=== PATIENT | female | born 1945 | race Caucasian/White ===

== ENCOUNTER 2023-10-07 07:36 | Outpatient (CLI) | payer MEDICARE, SELFPAY ==
[2023-10-07] MEDS: REGADENOSON 0.4 MG/5 ML SYRINGE IVP (09:51)
[2023-10-07] MEDS: SODIUM CHLORIDE 0.9 % (FLUSH) 10 ML SYRINGE IVF (09:52)
[2023-10-07 09:53] VITALS: BP 155/69; PULSE 85; RESP 16
--- NOTE | 2023-10-07 10:35 | W.PM.STED ---
Stress Test Note Date Date Seen: 10/07/23 Date of test: 10/07/23 Providers Primary care provider: Akhil Castro Stress test physician: Lucita Lakhani Stress Test Note Stress test ordered: Lexiscan Indication for test: Chest pain Stress test medicine: Lexiscan Results discussion: Resting EKG: Sinus bradycardia, 55 beats per minute. Flipped T-waves V1 and V2 without ST segment change. Resting blood pressure: 171/84 Stress test: Patient had a walking Lexiscan performed after consent granted by patient. Patient did experience lightheadedness, diaphoresis and shortness of breath after the administration of the regadenoson but no chest pain. Symptoms abated by E the end of the test, she felt better. She states she certainly did not experience the chest discomfort that she had been having. She had no hypotension. There was no definitive EKG changes for ischemia, no arrhythmia. Blood pressure at the termination of the test was 180 over 93 and by the end of recovery was 155/69. She will have her post stress nuclear images obtained to send for reading. Await the nuclear medicine images for full diagnostic report. Impression: Subjective symptoms of lightheadedness, diaphoresis and shortness of breath without chest pain, objectively negative EKG portion of this Lexiscan. Follow up suggested: Patient will have her post-stress images done and discharge to home to await the final report.
== END 2023-10-07 09:54 | disposition home or self-care (01) ==
PROVIDERS: PCP Family Medicine; Visit Provider Family Medicine
DX: R07.9 Chest pain, unspecified (principal); R06.09 Other forms of dyspnea
CPT/HCPCS: 78452; 93016; 93017; A9500; J2785

== ENCOUNTER 2024-04-24 11:25 | Outpatient (CLI) | payer MEDICARE, SELFPAY | END 2024-04-24 11:26 | disposition home or self-care (01) | LOC: NFLDREF 11:26 | PROVIDERS: PCP Family Medicine; Visit Provider Family Medicine | DX: Z13.228 Encounter for screening for other metabolic disorders (principal) | CPT/HCPCS: 80053 ==

== ENCOUNTER 2024-05-17 09:16 | Day surgery (SDC) | payer MEDICARE, SELFPAY ==
[2024-05-17] VITALS (22 sets, daily range): BP systolic 94–154; BP diastolic 55–95; PULSE 46–83; RESP 16–20; TEMP 35.8–36.8; O2SAT 9–99
[2024-05-17] MEDS: LACTATED RINGERS 1000 ML 1,000 ML 100 ML IV ×2 (10:00→13:00)
[2024-05-17] MEDS: SODIUM CHLORIDE 0.9 % (FLUSH) 10 ML SYRINGE IVF (10:00)
--- NOTE | 2024-05-17 10:02 | W.PM.H&PU ---
History & Physical Update History & Physical Update H&P Reviewed and patient assessed: No changes noted
[2024-05-17] MEDS: MIDAZOLAM HCL 1 MG/ML inj IVP (10:33)
[2024-05-17] MEDS: fentaNYL 100 MCG/2 ML inj IVP (10:33)
--- NOTE | 2024-05-17 10:45 | SUR.PREOP ---
TIME?OUT:?1030 PT/RN/MDA?VERIFICATION?OF?SURGICAL?SITE,?PROCEDURE,?AND?CONSENT OBTAINED?PRIOR?TO?INVASIVE?PROCEDURE.
--- NOTE | 2024-05-17 10:46 | SUR.PREOP ---
Patient has allergy to iodine contrast, no iodine nasal swab prep done pre-op. Patient refused oral meds.
[2024-05-17] MEDS: CEFAZOLIN 2 GM in 0.9 % SODIUM CHLORIDE Mini-bag 100 ML IVPB ×2 (10:48→17:52)
[2024-05-17] MEDS: TRANEXAMIC ACID 100 MG/ML INJ 1000 MG IV (10:49)
--- NOTE | 2024-05-17 10:55 | CRLHL7_ITS ---
For Patients: As a result of the Cures Act, medical imaging exams and procedure reports are released immediately into your electronic medical record. You may view this report before your referring provider. If you have questions, please contact your health care provider. INDICATION: Postop COMPARISON: 03/27/2024 TECHNIQUE: Two view left knee. FINDINGS: Left knee arthroplasty. Components in good position. No fracture. Expected postoperative appearance of the soft tissues. IMPRESSION: Postoperative radiograph of the left knee arthroplasty. No complication seen. Dictated by Karolina Meadows MD @ 05/17/2024 1:12:45 PM (Electronically Signed)
--- NOTE | 2024-05-17 11:58 | P.NB_ITS ---
Nerve Block Nerve Block Time Seen by Provider: 10:33 Date Seen: 05/17/24 Type of block requested by surgeon for post-operative analgesia: adductor canal Side: left Time out performed: Yes Verification of patient name: Yes Verification of date of : Yes Site marking: site marked Name of person performing procedure: Suman Continuous monitoring Was continuous monitoring of O2 sat, B/P, monitoring and evaluation advisor, recorded every 15 minutes?: Yes Procedure Checklist: sterile prep, needles and gloves Ultrasound guided. Images saved: Yes Medications given in 5ml increments after negative aspiration: Marcaine %: 0.25 mL: 15 Needle gauge: 20 Precedex (mcg): 25 Patient tolerated procedure well: Yes Block Charges Block Charge (with Pro Fee): Femoral Nerve Use of Ultrasound Machine for Block: Yes- US Guidance/pain block
--- NOTE | 2024-05-17 11:59 | P.ANES_ITS ---
Anesthesia Charges Start Date/Time Anesthesia Start Date: 05/17/24 Anesthesia Start Time: 10:37 Stop Date/Time Anesthesia Stop Date: 05/17/24 Anesthesia Stop Time: 12:58 Summary Extremes of Age - Over 70 or under 1: MDA Coding CPT Codes CPT Codes: ANESTH KNEE ARTHROPLASTY - 47763 ([id number]) P3 - PATIENT W/SEVERE SYS DISEASE, QK - UPPER INSPECTOR 2-4 CNCRNT ANES PROC, QX - SPEECH LANGUAGE PATHOLOGIST TRAVEL SVC W/ MD MED DIRECTION Additional Codes: Summary - Extremes of Age - Over 70 or under 1: MDA ([id number])
--- NOTE | 2024-05-17 11:59 | P.NB_ITS ---
Nerve Block Nerve Block Time Seen by Provider: 10:33 Date Seen: 06/07/24 Type of block requested by surgeon for post-operative analgesia: geniculars Side: left Time out performed: Yes Verification of patient name: Yes Verification of date of : Yes Site marking: site marked Name of person performing procedure: Suman Continuous monitoring Was continuous monitoring of O2 sat, B/P, lunchroom monitor, recorded every 15 minutes?: Yes Procedure Checklist: sterile prep, needles and gloves Ultrasound guided. Images saved: Yes Medications given in 5ml increments after negative aspiration: Marcaine %: 0.25 mL: 9 Needle gauge: 25 Patient tolerated procedure well: Yes Block Charges Block Charge (with Pro Fee): Genicular Nerve Block
--- NOTE | 2024-05-17 11:59 | W.ANESCHARGE ---
Anesthesia Charges Start Date/Time Anesthesia Start Date: 05/17/24 Anesthesia Start Time: 10:37 Stop Date/Time Anesthesia Stop Date: 05/17/24 Anesthesia Stop Time: 12:58 Summary Extremes of Age - Over 70 or under 1: MDA Coding CPT Codes CPT Codes: ANESTH KNEE ARTHROPLASTY - 91933 ([id number]) P3 - PATIENT W/SEVERE SYS DISEASE, QK - MEASUREMENT SPECIALIST 2-4 CNCRNT ANES PROC, QX - PIANO SOUNDING BOARD MATCHER SVC W/ MD MED DIRECTION Additional Codes: Summary - Extremes of Age - Over 70 or under 1: MDA ([id number])
--- NOTE | 2024-05-17 12:08 | P.ORPRC_ITS ---
Procedure Note Date of procedure: 05/17/24 Procedure: PREOPERATIVE DIAGNOSIS: 1. Left knee osteoarthritis, primary, severe POSTOPERATIVE DIAGNOSIS: 1. Left knee osteoarthritis, primary, severe PROCEDURE: 1. Left total knee arthroplasty - subvastus SURGEON: Jose Juan Quinn MD. ANIMAL HUSBANDRY MANAGER: Randy Johnson PA-C - Of note, a skilled prosthetic assistant was critical for this case to aid in patient positioning, tissue retraction, limb manipulation/positioning, and closure. ANESTHESIA: Spinal anesthetic EBL: 50ml IMPLANTS: DePuy J&J all cemented TKA - Attune PS femur size 5 narrow Size 4 tibia 6 mm poly spacer 38 mm patella TOURNIQUET: 90 min at 250 torr COMPLICATIONS: None evident INDICATIONS: The patient is a pleasant 78-year-old female who has experienced severe left knee pain and difficulty bearing weight. Workup included x-rays which revealed severe osteoarthrosis in the knee. Given the deformity, the dysfunction, and the pain, as well as the failure of nonoperative management, recommendation was made for surgery. FINDINGS: Full-thickness chondral loss diffusely throughout the lateral and patellofemoral compartments. To a lesser degree medial compartment. Degenerative meniscus pathology lateral greater than medial. Large effusion upon entering the joint. DESCRIPTION OF PROCEDURE: Following a thorough discussion of risks, benefits, and alternatives consent was obtained and the left knee was marked. The patient was brought to the operating room and placed supine on the operating table. Induction of anesthesia was undertaken. 1 g IV Ancef and 1 g tranexamic acid was administered within 1 hr of incision preoperatively. Proper time-out was performed identifying proper patient, site, procedure. The operative extremity was prepped and draped in the appropriate sterile fashion using ChloraPrep after the patient was positioned supine with all bony prominences well padded. A longitudinal, anterior, midline skin incision was made starting approximately 3cm proximal to the superior pole of the patella and advanced distal to the tibial tubercle. A subvastus approach was utilized. A medial subperiosteal sleeve was created with knife, robert elevator and curved osteotome. The retropatellar fatpad was resected and the synovium in the suprapatellar pouch excised to visualize the anterior femoral cortex. Femoral preparation was performed via an intramedullary guide. Step drill allow ed access into the femoral canal. The distal cutting guide was placed with 6 ? of valgus and 11 mm cut on the distal femur. Femur was sized using a anterior referencing guide in 5 ? of external rotation. This was also confirmed by utilizing trans epicondylar axis and Whitesides line for reference. This found have a best fit with the sizing noted above. The 4 in 1 cutting block was then placed, and the distal femur shaped accordingly. The box cut was then created and the trial implant inserted to confirm appropriate fit. We turned our attention to the proximal tibia. Extramedullary guide was utilized for cutting with the goal of being 90 degree cut from the mechanical axis of the tibia in the varus/valgus plane utilizing tibial crest as the primary alignment. Initially a 3 mm resection was performed from the medial tibial plateau. Ultimately, balancing was achieved in both flexion and extension in both varus and valgus. The knee was able to achieve full extension as well comfortably. The patella was initially measured and found have a thickness of 19 mm. It was resected back to approximately 14 mm. It was sized to be a best fit with as noted above. This was drilled, trial placed. All trials were placed and found to have an excellent stability and balance. At this stage, trial implants were removed, the knee was thoroughly irrigated with normal saline, and the cement was mixed. After irrigation, the knee was thoroughly dried, and cement placed, with the real tibial and femoral implants placed along with the patella. Trial poly spacer was placed and confirmed to have excellent range of motion and full extension, and the real poly spacer opened and inserted. All extra cement was removed, and a 3 min Betadine soak performed. Finally, a final irrigation round with normal saline was performed. Closure performed with 0 PDS and #0 Stratafix for the quad tendon/retinaculum. 2-0 Vicryl/Stratafix for the subcutaneous and 4-0 Monocryl for subcuticular closure. Dressings were applied and the patient was awoken from anesthesia after the tourniquet deflated and transferred the PACU in stable condition. A skilled prosthetic assistant was critical for this case to aid in patient positioning, tissue retraction, bone exposure, limb manipulation/positioning, patient safety, and closure. PLAN: 1. Weight bear as tolerated operative extremity. 2. 23 hr perioperative antibiotics. 3. Ice. 4. PT/OT consults for ambulation assistance/mobility education. 5. Social work consult for discharge planning. 6. DVT prophylaxis with at SCDs and aspirin twice daily.
--- NOTE | 2024-05-17 12:59 | P.ANES_ITS ---
Anesthesia Charges Start Date/Time Anesthesia Start Date: 05/17/24 Anesthesia Start Time: 10:37 Stop Date/Time Anesthesia Stop Date: 05/17/24 Anesthesia Stop Time: 12:58 Summary Extremes of Age - Over 70 or under 1: LABOR RELATIONS SPECIALIST Coding CPT Codes CPT Codes: ANESTH KNEE ARTHROPLASTY - 79017 ([id number]) P3 - PATIENT W/SEVERE SYS DISEASE, QK - MANUFACTURING QUALITY TECHNICIAN 2-4 CNCRNT ANES PROC, QX - LABOR RELATIONS SPECIALIST SVC W/ MD MED DIRECTION Additional Codes: Summary - Extremes of Age - Over 70 or under 1: LABOR RELATIONS SPECIALIST ([id number])
--- NOTE | 2024-05-17 12:59 | W.ANESCHARGE ---
Anesthesia Charges Start Date/Time Anesthesia Start Date: 05/17/24 Anesthesia Start Time: 10:37 Stop Date/Time Anesthesia Stop Date: 05/17/24 Anesthesia Stop Time: 12:58 Summary Extremes of Age - Over 70 or under 1: BRICKLAYER SUPERVISOR Coding CPT Codes CPT Codes: ANESTH KNEE ARTHROPLASTY - 03050 ([id number]) P3 - PATIENT W/SEVERE SYS DISEASE, QK - PROFESSOR OF THEATER 2-4 CNCRNT ANES PROC, QX - BRICKLAYER SUPERVISOR SVC W/ MD MED DIRECTION Additional Codes: Summary - Extremes of Age - Over 70 or under 1: BRICKLAYER SUPERVISOR ([id number])
[2024-05-17] MEDS: OXYCODONE 1 MG/ML ORAL SOLN 5 MG PO ×2 (14:33→18:13)
--- NOTE | 2024-05-17 17:25 | PC.NURSE ---
End of shift. Pt has been very pleasant but also very anxious and she want to do things her way. she is alert x4. pain in the left knee 3-5/ she got liquid pain meds. she does not do well with po meds. IV is patent. alarms are on and she is a fall risk. Rn recommenced to not get up to [facility], but pt said she could not pee any other way. she stood fine and turned with no problems. and he knees buckled and she was lowered to the ground. md was update and family was in the room. active fabby is on. Álvaro becker is also on. plexi are on. pt is eating, drinking and voiding with no problems. she does have trouble swallowing at time.
--- NOTE | 2024-05-17 17:53 | P.IMCN_ITS ---
Date of Consult Patient: [facility] Patient Consult date: 05/17/24 Requesting Physician: Orthopedics Primary Care Provider: Akhil Castro MD Consult Narrative Reason for consult: Medical management Narrative: Soha Ferrer is a 78 year old female past medical history significant for osteoarthritis, COPD, osteoporosis, history of DVT is POD#0 s/p left total knee arthroplasty, Dr. Quinn. There have been no perioperative complications or nursing concerns reported. Estimated total blood loss documented as 50 ml. Updated and reviewed the active medical problems, past medical history, past surgical history, social history, allergies and medications in our electronic EMR. Postoperatively, patient reports pain fairly well managed. Improved with oxycodone and Tylenol. Tolerating orals without nausea vomiting. Tells me she has a history of swallowing difficulties, possibly esophageal stricture though I did not see this in her EMR. Managed with slowed eating, taking breaks. Reported by nurses earlier this afternoon that she was determined to ambulate and proceeded to take steps despite staff cautioning her not to while holding onto her. She did slip to the ground while the nurse was holding her. No injury reported. Review of Systems Narrative: REVIEW OF SYSTEMS: Complete review of systems performed and negative unless otherwise stated in HPI or below. [facility] Medical History (Updated 05/17/24 @ 20:44 by Essence Flores PA-C) Swallowing difficulty ?R13.10 - Dysphagia, unspecified (ICD-10) Ankle fracture ?S82.899A - Other fracture of unspecified lower leg, initial encounter for closed fracture (ICD-10) Wrist fracture ?S62.109A - Fracture of unspecified carpal bone, unspecified wrist, initial encounter for closed fracture (ICD-10) History of herpes zoster (2019) ?Z86.19 - Personal history of other infectious and parasitic diseases (ICD- 10) Pulmonary embolism (2019) ?I26.99 - Other pulmonary embolism without acute cor pulmonale (ICD-10) Surgical History History of esophageal dilatation (~1979) ?Z98.890 - Other specified postprocedural states (ICD-10) History of tonsillectomy and adenoidectomy ?Z90.89 - Acquired absence of other organs (ICD-10) History of cataract surgery (01/2019) ?Z98.49 - Cataract extraction status, unspecified eye (ICD-10) Family History Mother Heart disease Myocardial infarction, Onset Age: 70 Osteoporosis Father Heart disease Sister Stroke, Onset Age: 52 Myocardial infarction, Onset Age: 61 Osteoporosis Brother Heart disease Hx of CABG, Onset Age: 50 Sister Heart disease, Onset Age: 62 Osteoporosis Lung cancer Brother Heart disease, Onset Age: 60 Maternal Grandmother Stroke, Onset Age: 52 Brother Pancreatic cancer, Onset Age: 72 Sister Stroke, Onset Age: 72 Osteoporosis Brother Congenital heart anomaly Aunt Pancreatic cancer Other Alzheimers disease Thyroid disease Social History What is your current living situation?: I presently have a place to live Problems where you live: no known problems In the past 12 months, utilities in danger of being shut off: no In past 12 months, lack of transportation kept you from medical appts, meetings, work, or getting things needed for daily living: no In the past 12 mos, have been you worried that your food would run out before you had money to buy more?: never true In the past 12 mos, the food you bought just didn't last and you didn't have money to buy more?: never true Highest level of school completed/degree received: some college, no degree Smoking Status: Never smoker Do you use any of these nicotine containing products: None Second hand tobacco smoke exposure: No How often do you have a drink containing alcohol: 4 or more times a week Alcohol type: hard liquor How many standard drinks containing alcohol do you have on a typical day: 1 or 2 How often do you have six or more drinks on one occasion: Never AUDIT-C Alcohol total score: 4 Non-prescribed substance use: denies use Caffeine: Yes How often does anyone, including family, friends and others, physically hurt you : never How often does anyone, including family, friends and others, insult or talk down to you: never How often does anyone, including family, friends and others, threaten you with harm: never How often does anyone, including family, friends and others, scream or curse at you: never service: No Meds Home Medications and Allergies Allergies Allergy/AdvReac Type Severity Reaction Status Date / Time alendronate sodium (From Allergy Severe Swelling Verified 05/17/24 10:48 Fosamax) of Lip/Tongue/Throat hydrocortisone (From Allergy Severe Unknown Verified 05/17/24 10:48 Terra-Cortril) Iodinated Contrast Media Allergy Severe Anaphylaxis Verified 05/17/24 10:48 oxytetracycline (From Allergy Severe Unknown Verified 05/17/24 10:48 Terra-Cortril) Sulfa (Sulfonamide Allergy Intermediate Hives Verified 05/17/24 10:48 Antibiotics) hydromorphone (From Dilaudid) AdvReac Mild Nausea Verified 05/17/24 10:48 Exam Narrative: Exam Narrative: PHYSICAL EXAM General: Pleasant, conversant, NAD HEENT: Normocephalic, atraumatic, sclera white, EOMI, oral mucosa moist Cardiovascular: RRR, S1S2. No pitting edema Pulmonary: CTA bilaterally without rhonchi, rales, expiratory wheezes. No dyspnea Neurological: Alert, answering questions appropriately, cranial nerves intact, no focal findings Extremities: No gross joint deformity or swelling. Postoperative dressing in place, dry. Neurovascularly intact Skin: Warm, dry. Const: Vital Signs, click to edit/add: Vital Signs - 24 hr 05/17/24 09:53 05/17/24 10:33 05/17/24 12:55 Temperature 98.3 F 97 F L Pulse Rate 54 L 57 L 67 Respiratory Rate 16 16 16 Blood Pressure 147/80 H 154/71 H 95/55 L Pulse Oximetry 97 96 90 Oxygen Delivery Me thod Room Air Room Air Room Air Oxygen Flow Rate 05/17/24 13:00 05/17/24 13:05 05/17/24 13:10 Temperature Pulse Rate 53 L 57 L 61 Respiratory Rate 16 16 16 Blood Pressure 117/61 124/65 136/72 Pulse Oximetry 93 97 95 Oxygen Delivery Me thod Nasal Cannula Nasal Cannula Nasal Cannula Oxygen Flow Rate 2 2 2 05/17/24 13:15 05/17/24 13:20 05/17/24 13:25 Temperature 97.8 F Pulse Rate 60 53 L 60 Respiratory Rate 16 16 16 Blood Pressure 143/71 H 137/70 126/75 Pulse Oximetry 98 98 98 Oxygen Delivery Me thod Nasal Cannula Nasal Cannula Nasal Cannula Oxygen Flow Rate 2 2 2 05/17/24 14:00 05/17/24 14:00 05/17/24 14:15 Temperature 96.5 F L 96.5 F L Pulse Rate 46 L 46 L 49 L Respiratory Rate 20 20 16 Blood Pressure 152/88 H 152/88 H 138/67 Pulse Oximetry 94 95 98 Oxygen Delivery Me thod Room Air Room Air Room Air Oxygen Flow Rate 05/17/24 14:30 05/17/24 14:45 05/17/24 15:00 Temperature Pulse Rate 69 60 Respiratory Rate 16 16 16 Blood Pressure 121/57 L 94/80 116/68 Pulse Oximetry 94 9 L 96 Oxygen Delivery Me thod Room Air Room Air Room Air Oxygen Flow Rate 05/17/24 15:15 05/17/24 15:30 05/17/24 15:35 Temperature 96.7 F L Pulse Rate 61 61 Respiratory Rate 16 16 Blood Pressure 128/74 148/65 H Pulse Oximetry 99 98 99 Oxygen Delivery Me thod Room Air Room Air Oxygen Flow Rate 05/17/24 15:41 05/17/24 16:30 Temperature 96.9 F L Pulse Rate 65 Respiratory Rate 16 Blood Pressure 121/92 H Pulse Oximetry 99 98 Oxygen Delivery Me thod Room Air Room Air Oxygen Flow Rate Assessment and Plan Assessment and plan (1) Osteoarthritis of left knee: Problem comment: -POD#0 s/p L TKA, Dr. Quinn -perioperative management including pain management and anticoagulation per Orthopedic surgery -encourage postoperative pulmonary hygiene -PT OT consults -plan to discharge home with daughter and son-in-law tomorrow Status: Acute (2) COPD (chronic obstructive pulmonary disease): Problem comment: -stable, encourage pulmonary hygiene postoperatively, incentive spirometry Status: Acute (3) Swallowing difficulty: Problem comment: -chronic, possibly an esophageal stricture? I do not see records in her recent EMR. Knows how to self manage Status: Acute Total Time Spent Total Time Spent: Today I spent 60 minutes seeing the patient, discussing the patient with ER staff, reviewing Expanse and Epic notes/diagnostics, discussing the care plan with our team that includes social work, PT/OT, pharmacy, RT, detention and documenting my impressions and plan in the medical record.
[2024-05-17] MEDS: ACETAMINOPHEN SUSPENSION 1 BOTTLE 1000 MG PO (19:13)
[2024-05-17] MEDS: SENNOSIDES 1 TAB TABLET 2 TAB PO (20:37)
[2024-05-17] MEDS: ASPIRIN 81 MG TAB.CHEW PO (20:37)
[2024-05-17] MEDS: BENZOCAINE/MENTHOL 1 EACH LOZENGE MUCOUS MEM (20:38)
[2024-05-17] MEDS: OXYCODONE 1 MG/ML ORAL SOLN PO (21:25)
[2024-05-18] MEDS: CEFAZOLIN 2 GM in 0.9 % SODIUM CHLORIDE Mini-bag 100 ML IVPB ×2 (01:44→09:58)
[2024-05-18 03:00] VITALS: BP 128/55; PULSE 58; RESP 18; TEMP 36.6; O2SAT 98
[2024-05-18] MEDS: OXYCODONE 1 MG/ML ORAL SOLN PO ×2 (05:17→11:23)
--- NOTE | 2024-05-18 05:34 | PC.NURSE ---
Addendum entered and electronically signed by Ayse Mcclain RN 05/18/24 06:49: At 2024 patient's daughter expressed concern that her mother was slurring her words. Waist Presser performed neuro exam, patient's pupils equal and reactive, smile even, upper and lower extremities equal in strength. Waist Presser updated Essence Jeter PA-C, instructed telegraphic typewriter mechanic to watch symptoms but patient had anesthesia and narcotic medications which could be causing slurring of words. Neuro's checked periodically throughout the night and no change from baseline. Daughter's bedside and updated with MD recommendation and in agreement with plan of care. Original Note: End of shift report [id number]: Pleasant and cooperative with cares. Pain to left knee well managed with current regimen. Dressing to left knee is clean, dry and intact. CMS to LLE intact, patient tolerating transfers and short distances of walking with walker and gait belt. Ice pack to left knee, patient tolerated well. Denies any nausea or vomiting, tolerating foods and fluids. Continent of bladder throughout the night.
[2024-05-18 06:51] LABS: Basophils Absolute Auto 0.01 K/uL (0.00-0.30); Basophils Percent Auto 0.1 % (0.0-3.0); Eosinophils Absolute Auto 0.01 K/uL (0.00-0.50); Eosinophils Percent Auto 0.1 % (0.0-7.0); Hematocrit 31.4 % (33.0-51.0); Hemoglobin* 10.3 gm/dL (12.0-16.0); Immature Granulocytes Abs Auto 0.01 K/uL (0.00-0.30); Immature Granulocytes Pct Auto 0.1 %; Lymphocytes Percent Auto 13.9 % (20-44); Mean Corpuscular HGB Conc 33 gm/dL (32-36); Mean Corpuscular Hemoglobin 30 pg (26-34); Mean Corpuscular Volume 92 fL (80-100); Monocytes Percent Auto 10.7 % (0.0-11.0); Neutrophils Percent Auto 75.1 % (42.0-72.0); Platelet Count* 251 K/uL (140-440); RDW Coefficient of Variation % 13.1 % (11.5-15.5); Red Blood Count 3.41 m/uL (4.00-5.20); White Blood Count* 10.28 K/uL (4.50-11.00)
[2024-05-18 06:57] LABS: Sodium* 133 mmol/L (135-149)
[2024-05-18 07:00] LABS: Blood Urea Nitrogen* 12 mg/dL (7-30); Est. Creatinine Clearance* 36.08; Estimated Glomerular Filt Rate 57 ml/min; Slide Review Reflex No
[2024-05-18 07:30] VITALS: BP 120/73; PULSE 64; RESP 16; TEMP 36; O2SAT 97
[2024-05-18] MEDS: SENNOSIDES 1 TAB TABLET 2 TAB PO (08:51)
[2024-05-18] MEDS: ASPIRIN 81 MG TAB.CHEW PO (08:51)
[2024-05-18] MEDS: ONDANSETRON 2 MG/ML inj 4 MG IVP ×2 (10:12→14:39)
--- NOTE | 2024-05-18 10:36 | PC.SOCIAL ---
Social Work Consult: SW met with patient and daughter to determine if there are any needs or concerns with discharge. Daughter states that she has no concerns about discharge and that she and her sister, who patient will be staying with, feel ready. Patient expresses that it's been a bit challenging as she hasn't been able to sleep, but feels when she does get some sleep she will feel better. Patient spoke with daughter about how she wants the sleeve on her leg and ice, daughter was reassuring and supportive of patient. Please contact SW if needs arise.
[2024-05-18 11:00] VITALS: BP 150/66; PULSE 57; RESP 20; TEMP 35.9; O2SAT 95
--- NOTE | 2024-05-18 11:06 | CRLHL7_ITS ---
For Patients: As a result of the Century Cures Act, medical imaging exams and procedure reports are released immediately into your electronic medical record. You may view this report before your referring provider. If you have questions, please contact your health care provider. INDICATION: Notable left common posterior thigh pain, postop LTKA TECHNIQUE: Ultrasound venous duplex lower left extremity. Compression venous exam was performed using marie-scale, color Doppler, and spectral Doppler analysis. COMPARISON: None. FINDINGS: Limited exam, secondary to recent surgery. Deep veins: Sonographic imaging demonstrates the left common femoral, deep femoral, superficial femoral, popliteal, posterior tibial and the contralateral right common femoral veins to be fully compressible with normal color Doppler blood flow. Superficial veins: Greater saphenous vein is fully compressible. IMPRESSION: Normal left lower extremity venous ultrasound, no sign of deep venous thrombosis. Dictated by Max Pate MD @ 05/18/2024 12:37:00 PM (Electronically Signed)
--- NOTE | 2024-05-18 11:11 | PM.ORPN ---
Subjective Subjective Date Seen: 05/18/24 Principal diagnosis: Status postop day 1 left total knee arthroplasty Interval history: Patient reports not feeling well. Nausea and vomiting. Recently took Zofran for nausea which still has not helped. Notes notable left calf and posterior thigh pain. Posterior knee pain. No acute events over night. Pain managed with scheduled and PRN medications, ice. She is unable to swallow pills. DVT prophylaxis: 81 mg aspirin by mouth twice daily, SCDs, walking. Denies fevers, chills, aches, N/V, CP, SOB/RAYMOND, or lightheadedness. Years ago, provoked right lower extremity blood clot due to being in bed for numerous weeks from shingles. Daughter in room with the patient. Ortho Exam Narrative Exam Narrative: -Patient appears comfortable; no apparent acute distress. -Alert and oriented times 3 -Operative knee moderately swollen; soft tissues supple; ecchymosis just medial and proximal to the bandage; no erythematous streaking Warmth appropriate -Surgical dressing clean, dry, intact; no drainage -Bilateral calfs soft; no significant swelling or edema, erythema, discoloration, warmth, or palpable cords. Notably tender to palpation left calf, especially medial and proximal posterior thigh -2+ DP/PT pulses, intact dermatomes and myotomes distally (5/5 strength) Const Vital Signs, click to edit/add: Vital Signs - 24 hr 05/17/24 12:55 05/17/24 13:00 05/17/24 13:05 Temperature 97 F L Pulse Rate 67 53 L 57 L Pulse Rate [Left Pulse Oximeter] Respiratory Rate 16 16 16 Blood Pressure 95/55 L 117/61 124/65 Blood Pressure [Right Arm] Pulse Oximetry 90 93 97 Oxygen Delivery Method Room Air Nasal Cannula Nasal Cannula Oxygen Flow Rate 2 2 05/17/24 13:10 05/17/24 13:15 05/17/24 13:20 Temperature Pulse Rate 61 60 53 L Pulse Rate [Left Pulse Oximeter] Respiratory Rate 16 16 16 Blood Pressure 136/72 143/71 H 137/70 Blood Pressure [Right Arm] Pulse Oximetry 95 98 98 Oxygen Delivery Method Nasal Cannula Nasal Cannula Nasal Cannula Oxygen Flow Rate 2 2 2 05/17/24 13:25 05/17/24 14:00 05/17/24 14:00 Temperature 97.8 F 96.5 F L 96.5 F L Pulse Rate 60 46 L 46 L Pulse Rate [Left Pulse Oximeter] Respiratory Rate 16 20 20 Blood Pressure 126/75 152/88 H 152/88 H Blood Pressure [Right Arm] Pulse Oximetry 98 94 95 Oxygen Delivery Method Nasal Cannula Room Air Room Air Oxygen Flow Rate 2 05/17/24 14:15 05/17/24 14:30 05/17/24 14:45 Temperature Pulse Rate 49 L 69 Pulse Rate [Left Pulse Oximeter] Respiratory Rate 16 16 16 Blood Pressure 138/67 121/57 L 94/80 Blood Pressure [Right Arm] Pulse Oximetry 98 94 9 L Oxygen Delivery Method Room Air Room Air Room Air Oxygen Flow Rate 05/17/24 15:00 05/17/24 15:15 05/17/24 15:30 Temperature 96.7 F L Pulse Rate 60 61 61 Pulse Rate [Left Pulse Oximeter] Respiratory Rate 16 16 16 Blood Pressure 116/68 128/74 148/65 H Blood Pressure [Right Arm] Pulse Oximetry 96 99 98 Oxygen Delivery Method Room Air Room Air Room Air Oxygen Flow Rate 05/17/24 15:35 05/17/24 15:41 05/17/24 16:30 Temperature 96.9 F L Pulse Rate 65 Pulse Rate [Left Pulse Oximeter] Respiratory Rate 16 Blood Pressure 121/92 H Blood Pressure [Right Arm] Pulse Oximetry 99 99 98 Oxygen Delivery Method Room Air Room Air Oxygen Flow Rate 05/17/24 19:00 05/17/24 20:00 05/17/24 23:00 Temperature 97.2 F L 97.4 F L Pulse Rate 82 83 Pulse Rate [Left Pulse Oximeter] Respiratory Rate 18 16 Blood Pressure 123/95 H 121/74 Blood Pressure [Right Arm] Pulse Oximetry 94 97 94 Oxygen Delivery Method Room Air Room Air Oxygen Flow Rate 05/17/24 23:00 05/17/24 23:00 05/17/24 23:00 Temperature 96.7 F L Pulse Rate Pulse Rate [Left Pulse Oximeter] 60 Respiratory Rate 16 16 16 Blood Pressure Blood Pressure [Right Arm] 112/56 L Pulse Oximetry 94 94 Oxygen Delivery Method Room Air Room Air Oxygen Flow Rate 05/18/24 03:00 05/18/24 07:30 05/18/24 07:30 Temperature 97.9 F 96.8 F L Pulse Rate Pulse Rate [Left Pulse Oximeter] 58 L 64 Respiratory Rate 18 16 Blood Pressure Blood Pressure [Right Arm] 128/55 L 120/73 Pulse Oximetry 98 97 97 Oxygen Delivery Method Room Air Room Air Oxygen Flow Rate 05/18/24 07:30 05/18/24 07:30 Temperature Pulse Rate Pulse Rate [Left Pulse Oximeter] 64 Respiratory Rate 16 16 Blood Pressure Blood Pressure [Right Arm] Pulse Oximetry 97 Oxygen Delivery Method Room Air Oxygen Flow Rate Assessment and Plan Assessment and plan (1) Osteoarthritis of left knee: Problem details: -POD#1 s/p L TKA, Dr. Quinn -perioperative management including pain management and anticoagulation per Orthopedic surgery -encourage postoperative pulmonary hygiene -PT OT consults -plan to discharge home with daughter and son-in-law tomorrow Status: Acute (2) COPD (chronic obstructive pulmonary disease): Problem details: -stable, encourage pulmonary hygiene postoperatively, incentive spirometry Status: Acute (3) Swallowing difficulty: Problem details: -chronic, possibly an esophageal stricture? I do not see records in her recent EMR. Knows how to self manage Status: Acute (4) Postoperative nausea and vomiting: Problem details: Treated with Zofran recently, waiting for medication to help symptoms. Status: Acute Plan - Complete 23 hour perioperative antibiotics. - PT/OT consult for education and assistance. - Social work consult for discharge planning - Prescribed analgesics as needed - liquid and capsule medication granules on applesauce - DVT prophylaxis: 81 mg aspirin by mouth twice daily, walking, and SCDs - With her notable left calf and posterior thigh pain, will order venous duplex ultrasound to rule DVT before she leaves for discharge. - Continue to eat food with medications; small sips of water. Will discharge with Zofran to help with nausea. - Anticipation is for discharge to home with joann today, 05/18/2024 if the patient remains medically stable, pain is controlled, and they are safe with mobilization.
--- NOTE | 2024-05-18 14:14 | PC.NURSE ---
End of shift: Patient has complained of nausea and dizziness, aromatherapy applied and zofran given with some relief. Small amount of clear emesis noted x2. Pt states pain is in the back of her knee rated anywhere from 2-8, ice applied and pain meds offered and given. Patient dressing on the left knee is C/D/I. Left knee is swollen with 1+ edema noted. Pt is SL and continent of urine. Ambulates 1 assist with GB/W. Alarms are on.
--- NOTE | 2024-05-18 15:31 | PC.NURSE ---
went over discharge packet with pt and daughter, went over medications. appointments, education and instructions/ pt belonging sheet done. pt left with all belongings and paper work SL was d/c intact and patent. 2 active ice shent with pt. she got a w/e ride to [employer] and was helped in to van
== END 2024-05-18 15:15 | disposition home or self-care (01) ==
LOC: OR 09:17 → MEDSURG 09:18
PROVIDERS: PCP Family Medicine; Visit Provider Orthopaedic Surgery Sports Medicine
PROC: (CPT 27447; principal; 2024-05-17 11:00)
DX: M17.12 Unilateral primary osteoarthritis, left knee (principal); G89.18 Other acute postprocedural pain; R13.19 Other dysphagia; R11.2 Nausea with vomiting, unspecified; J44.9 Chronic obstructive pulmonary disease, unspecified; Z86.718 Personal history of other venous thrombosis and embolism; Z79.01 Long term (current) use of anticoagulants
CPT/HCPCS: 27447; 01402; 36415; 64447; 64454; 73560; 76942; 82565; 84132; 84295; 84520; 85025; 93971; 97110; 97116; 97161; 97165; 97530; 97535; 99100; A9270; C1776; J0665; J0690; J1100; J2250; J2405; J2704; J3010; J7120

== ENCOUNTER 2024-06-26 08:30 | Outpatient (RCR) | payer MEDICARE, SELFPAY ==
--- NOTE | 2024-05-09 15:32 | PT.OPE ---
PT [facility] PT [facility] Eval Start: 05/09/24 14:06 Freq: Status: Active Protocol: Document 05/09/24 14:06 ADELINALesley (Rec: 05/09/24 14:07 ADELINALesley [id number]) E-signed By Priyank Kyle DPT, MS Physical Therapy Outpatient Evaluation Insurance Information Recert Due Date 08/07/24 Insurance Name Medicare B,[employer] Medical Diagnosis Pre-op left total knee arthroplasty Treating Diagnosis L knee pain, decreased L knee ROM, decreased L LE flexibility and strength, and gait dysfunction Subjective Preferred Name Samira Dunaway Pt is a 78 y.o. female who presents to PT prior to L TKA tomorrow on 05/10/24 at [facility]. Has struggled with chronic L knee pain and weakness over the past year with amb limited due to her knee frequently buckling while waking. Pt describes previous radiographic evidence of L knee cartilage loss. Lives alone in a single-story home with 13 stairs to reach her laundry and living room in the basement. Pt will stay with her daughter in [place] following surgery and attend PT tx at our [place] clinic . Her daughter?s house has 2 steps to enter with a railing with her bedroom and bathroom on the main level. Began performing a pre-op TKA HEP her friend gave her 2 weeks ago with all exercises going well. Owns a FWW and a SPC. PMH includes L knee OA and asthma. AGGR factors: walking, stair climbing, standing, uneven surfaces, carrying objects. ALLEV factors: ice, Advil, rest. 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 Pain Comments 0-6/10 Current Work Status Retired Precautions Weight Bearing Status Weight Bear as Tolerated Therapy Limitations/Systems Review Not Limited Objective Functional Test Performed & Score LEFS: 5 Assessment Assessment/Impression Objectively pt displays decreased B (L>R) LE flexibility, imbalance, gait dysfunction, deconditioning and L LE weakness. Good quality of quad set and SLR with knee L ROM 0-0-138 deg. Pt motivated to increase activity levels following surgery which have been limited by pain. She will benefit from continued skilled PT intervention to address these limitations, returning following her L TKA on 05/12/24. Primary Functional Limitations Walking, stair climbing, standing, uneven surfaces, carrying objects. Plan of Care Rehabilitation Potential Excellent Physical Therapy Goals By end of session today, patient will... Demonstrate appropriate gait pattern with FWW to utilize post-surgery for optimal safety when ambulating Verbalize understanding of most appropriate home set up including needed equipment for optimal safety and recovery post-surgery Be independent in HEP program to show ability to perform appropriate exercises post- surgery Following surgery: Short-term goals to be completed in 4 weeks: 1.Pt will display improved L knee passive ROM > 0-0-120 deg to improve quality of stair climbing. 2.Pt will display improved L LE strength as evidenced by ability to perform >10 SLR of good quality to improve quality of gait and progress to ambulation with single point cane. 3.Pt will report waking <3 times per night due to L knee pain to improve quality of sleep. Long-term goals to be completed in 12 weeks: 1.Pt will be independent and compliant with HEP for long chain quiller tender sx management 2.Pt will display improved L hip flex, hip ABD, quad and hamstring strength >4/5 to improve quality of gait without assistive device. 3.Pt will display improved mechanics going up<>down >2 steps with a reciprocal pattern using 1 railing to safely enter her home. 4.Pt report >75% improvement in LEFS questionnaire to significantly improve mabel to daily activities. Coordination/Communication With Referral Source Treatment Plan/Direct Interventions Gait Training,Ice/Cold/ Vasopneumatic,Joint Mobilization,Manual Therapy, Neuromuscular Re-ed, Therapeutic Exercises Frequency/Duration One pre-op visit then 2x per week for 12-20 visits following surgery Patient Will Be Discharged From Therapy Completion of LTG(s),Skills Plateau,Independent w/HEP, Independently Progressing Evaluation Billing Untimed Code Treatment Minutes 26 Complexity Moderate Certification Information Initial Certification Date 05/09/24 Ending Certification Date 08/07/24 Provider Signature Required Yes Provider Signature Shows Agreement With POC & Medical Necessity Physician NPI Number Write NPI# Here Physician Comment/Change : Physician Signature & Date Requested Please Sign/Date Here
== END 2024-10-24 23:59 | disposition home or self-care (01) ==
PROVIDERS: PCP Family Medicine; Visit Provider Orthopaedic Surgery Sports Medicine
DX: Z47.1 Aftercare following joint replacement surgery (principal); M17.12 Unilateral primary osteoarthritis, left knee; Z96.652 Presence of left artificial knee joint; M25.562 Pain in left knee; Z51.89 Encounter for other specified aftercare
CPT/HCPCS: 97110; 97162